=== PATIENT | female | born 1940 | race Caucasian/White ===

== ENCOUNTER 2019-11-16 11:06 | Inpatient (IN) ==
[2019-11-16 11:42] LABS: INR 1.4; Partial Thromboplastin Time 25.8 SECS (20.8-36.0)
[2019-11-16 11:53] LABS: Albumin 3.2 G/DL (3.4-5.0); Bilirubin,Total 0.7 MG/DL (0.2-1.0); Calcium 8.3 MG/DL (8.5-10.1); Osmolality,Calculated 266.5 MOS/KG (273-304); Total Protein 6.6 G/DL (6.4-8.3)
[2019-11-16] MEDS ORDERED: cefTRIAXone 1,000 MG VIAL ONE (12:37)
[2019-11-16] MEDS ORDERED: SODIUM CHLORIDE 0.9% 100 ML IV ONE (12:38)
[2019-11-16] MEDS ORDERED: CLINDAMYCIN INJ 900 MG in PREMIX 1 EACH IV STA (12:50)
[2019-11-16 13:46] LABS: Basophils % 0.2 % (0.0-0.8); Eosinophils # 0.1 10*3/uL (0.0-0.87); Eosinophils % 0.9 % (0.00-10.9); Hematocrit 34.3 VOL% (35.7-47.0); Hemoglobin 9.8 GM/DL (12.0-16.0); Immature Granulocytes % 0.5 %; Immature Granulocytes Absolute 0.05 #; Lymphocytes # 5.5 10*3/uL (1.4-4.0); Lymphocytes % 51.7 % (21.3-54.2); Mean Corpuscular HGB Conc 28.6 GM/DL (32-36); Mean Corpuscular Volume 80.9 FL (87-102); Mean Platelet Volume 11.4 FL (9.6-12.0); Monocytes % 4.2 % (1.7-12.7); NRBC # 0.02 10*3/uL; Neutrophils % 42.5 % (38.7-73.9); Platelet Count 123 T/CUMM (130-400); Red Blood Count 4.24 MC/CUMM (3.8-5.5); Red Cell Distribution Width 17.5 % (9.3-17.3); White Blood Count 10.6 T/CUMM (4-12)
[2019-11-16 13:57] LABS: Troponin I 0.017 NG/ML (0.00-0.045)
[2019-11-16] MEDS ORDERED: ONDANSETRON 4 MG/2 ML VIAL IV PRN (14:49)
[2019-11-16] MEDS ORDERED: BISACODYL 5 MG TABLET PO PRN (14:49)
[2019-11-16 14:54] LABS: Polychromasia Few
[2019-11-16 14:55] LABS: Hypochromasia Slight; Microcytosis Slight; Platelet Estimate Adequate
[2019-11-16] MEDS ORDERED: DIPH/TET/ACEL PERT BOOSTER VACCINE 0.5 ML VIAL IM ONE (15:05)
[2019-11-16] MEDS: FUROSEMIDE 40 MG/4 ML VIAL IV SCH (16:53)
[2019-11-16 20:11] LABS: Apearance,Urine CLEAR (Clear); Bacteria,Urine Occasional /HPF (Few); Bilirubin,Urine Negative (Negative); Blood, Urine Negative (Negative); Glucose,Urine (UA) Negative (Negative); Hyaline Casts,Urine 8 /LPF (0-3); Ketones,Urine 5 mg/dL (Negative); Mucus,Urine Occasional /LPF (Occasional); Nitrite,Urine Negative (Negative); Protein,Urine Negative; RBC,Urine 1 /HPF (0-4); Squamous Epithelial Cell,Urine Occasional /HPF (0-10); Urine Color Amber (Yellow); Urine Specific Gravity 1.014 (1.001-1.035); Urine Urobilinogen < 2.0 EU/DL (0.2-1.0); WBC,Urine 1 /HPF (0-6)
[2019-11-16] MEDS: METOPROLOL TARTRATE 25 MG TABLET PO SCH (20:57)
[2019-11-16] MEDS: oxyCODONE/ACETAMINOPHEN 5-325 MG TABLET PO PRN (20:57)
[2019-11-16] MEDS: DOCUSATE SODIUM 100 MG CAPSULE PO SCH (20:57)
[2019-11-16] MEDS ORDERED: carvediloL 3.125 MG TABLET PO SCH (21:00)
[2019-11-16] MEDS ORDERED: METOPROLOL TARTRATE 25 MG TABLET PO SCH (21:00)
[2019-11-17 05:57] LABS: % Iron Saturation 7.2 % (18-50); Calcium 8.2 MG/DL (8.5-10.1); Ferritin 35.8 ng/ml (8-252); Osmolality,Calculated 270.2 MOS/KG (273-304)
[2019-11-17 06:06] LABS: Basophils % 0.3 % (0.0-0.8); Eosinophils # 0.2 10*3/uL (0.0-0.87); Eosinophils % 1.3 % (0.00-10.9); Hematocrit 30.8 VOL% (35.7-47.0); Immature Granulocytes % 0.2 %; Immature Granulocytes Absolute 0.02 #; Lymphocytes # 8.4 10*3/uL (1.4-4.0); Lymphocytes % 72.5 % (21.3-54.2); Mean Corpuscular HGB Conc 29.2 GM/DL (32-36); Mean Corpuscular Volume 79.4 FL (87-102); Mean Platelet Volume 11.9 FL (9.6-12.0); Monocytes % 3.9 % (1.7-12.7); Neutrophils % 21.8 % (38.7-73.9); Platelet Count 121 T/CUMM (130-400); Red Blood Count 3.88 MC/CUMM (3.8-5.5); Red Cell Distribution Width 17.6 % (9.3-17.3); White Blood Count 11.5 T/CUMM (4-12)
[2019-11-17 06:10] LABS: Eosinophils 3 % (0-10); Hypochromasia 1+; Lymphocytes 68 % (20-55); Nucleated Red Blood Cells 1 (0-5); Platelet Estimate Normal; Segmented Neutrophils 29 % (50-85); Total Cells Counted 100
[2019-11-17 06:11] LABS: Atypical Lymphocytes Few; Microcytosis Slight
[2019-11-17] MEDS ORDERED: APIXABAN 5 MG TABLET PO SCH (09:30)
[2019-11-17] MEDS ORDERED: SOTALOL 80 MG TABLET PO SCH (09:30)
[2019-11-17] MEDS ORDERED: METOPROLOL TARTRATE 5 MG/5 ML VIAL IV ONE ×2 (10:00→10:49)
[2019-11-17] MEDS: FUROSEMIDE 40 MG/4 ML VIAL IV SCH ×2 (10:42→15:03)
[2019-11-17] MEDS: ACETAMINOPHEN 325 MG TABLET PO PRN (10:43)
[2019-11-17] MEDS: DOCUSATE SODIUM 100 MG CAPSULE PO SCH ×2 (11:04→21:02)
[2019-11-17] MEDS: FERROUS SULFATE 325 MG TABLET PO SCH (11:04)
[2019-11-17] MEDS: CHOLECALCIFEROL 1,000 UNIT TABLET PO SCH (11:05)
[2019-11-17] MEDS: ASCORBIC ACID 500 MG TABLET PO SCH ×2 (11:05→21:01)
[2019-11-17] MEDS: ASPIRIN EC 81 MG TABLET PO SCH (11:05)
[2019-11-17] MEDS: PANTOPRAZOLE 40 MG TABLET PO SCH (11:05)
[2019-11-17] MEDS: METOPROLOL TARTRATE 25 MG TABLET PO SCH ×2 (11:14→21:02)
[2019-11-17] MEDS ORDERED: LEVOFLOXACIN INJ 500 MG in PREMIX 1 EACH IV ONE (13:00)
[2019-11-17] MEDS ORDERED: ENOXAPARIN 80 MG/0.8 ML SYRINGE SUBCUT ONE (14:50)
[2019-11-17] MEDS ORDERED: dilTIAZem Drip 125 MG/125 ML PREMIX IV SCH (16:00)
[2019-11-17 16:05] LABS: Lymphocytes,Pleural Fluid 100 %
[2019-11-17 16:09] LABS: RBC,Pleural Fluid 90745 T/CUMM
[2019-11-17] MEDS: SOTALOL 80 MG TABLET PO SCH ×2 (16:38→21:02)
[2019-11-17] MEDS: oxyCODONE/ACETAMINOPHEN 5-325 MG TABLET PO PRN (18:07)
[2019-11-17] MEDS: APIXABAN 5 MG TABLET PO SCH (21:02)
[2019-11-18] MEDS: ACETAMINOPHEN 325 MG TABLET PO PRN (05:40)
[2019-11-18] MEDS: DORNASE ALFA 2.5 MG/2.5 ML VIAL RESP TX SCH ×2 (07:05→20:52)
[2019-11-18] MEDS: ALBUTEROL 1.25 MG/3 ML NEB RESP TX SCH ×3 (07:05→20:52)
[2019-11-18 07:14] LABS: Basophils % 0.2 % (0.0-0.8); Eosinophils # 0.1 10*3/uL (0.0-0.87); Eosinophils % 0.9 % (0.00-10.9); Hematocrit 32.1 VOL% (35.7-47.0); Immature Granulocytes % 0.2 %; Immature Granulocytes Absolute 0.02 #; Lymphocytes # 7.1 10*3/uL (1.4-4.0); Lymphocytes % 69.9 % (21.3-54.2); Mean Corpuscular HGB Conc 29.3 GM/DL (32-36); Mean Corpuscular Volume 79.7 FL (87-102); Mean Platelet Volume 11.6 FL (9.6-12.0); Monocytes % 5.1 % (1.7-12.7); Neutrophils % 23.7 % (38.7-73.9); Platelet Count 111 T/CUMM (130-400); Red Blood Count 4.03 MC/CUMM (3.8-5.5); Red Cell Distribution Width 17.5 % (9.3-17.3); White Blood Count 10.2 T/CUMM (4-12)
[2019-11-18 07:15] LABS: Hemoglobin 9.4 GM/DL (12.0-16.0)
[2019-11-18 07:16] LABS: Calcium 8.2 MG/DL (8.5-10.1); Osmolality,Calculated 274.1 MOS/KG (273-304)
[2019-11-18] MEDS: oxyCODONE/ACETAMINOPHEN 5-325 MG TABLET PO PRN ×2 (07:29→13:34)
[2019-11-18 07:32] LABS: Eosinophils 1 % (0-10); Lymphocytes 63 % (20-55); Platelet Estimate Decreased; Segmented Neutrophils 32 % (50-85); Total Cells Counted 100
[2019-11-18 07:33] LABS: Atypical Lymphocytes Few; Hypochromasia 1+; Microcytosis Slight; Ovalocytes Slight
[2019-11-18] MEDS ORDERED: FUROSEMIDE 20 MG/2 ML VIAL IV SCH (08:00)
[2019-11-18] MEDS: ASPIRIN EC 81 MG TABLET PO SCH (08:58)
[2019-11-18] MEDS: DOCUSATE SODIUM 100 MG CAPSULE PO SCH ×2 (08:58→21:22)
[2019-11-18] MEDS: CHOLECALCIFEROL 1,000 UNIT TABLET PO SCH (08:58)
[2019-11-18] MEDS: METOPROLOL TARTRATE 25 MG TABLET PO SCH ×2 (08:58→21:23)
[2019-11-18] MEDS: FERROUS SULFATE 325 MG TABLET PO SCH (08:58)
[2019-11-18] MEDS: SOTALOL 80 MG TABLET PO SCH ×2 (08:58→21:22)
[2019-11-18] MEDS: PANTOPRAZOLE 40 MG TABLET PO SCH (08:58)
[2019-11-18] MEDS: APIXABAN 5 MG TABLET PO SCH ×2 (08:58→21:22)
[2019-11-18] MEDS: ASCORBIC ACID 500 MG TABLET PO SCH ×2 (08:58→21:22)
[2019-11-18] MEDS: BACITRACIN OINT 0.9 GM PACK TOP SCH ×2 (12:34→21:25)
[2019-11-18] MEDS: LEVOFLOXACIN INJ 250 MG in PREMIX 1 EACH IV SCH (12:34)
[2019-11-18] MEDS ORDERED: SODIUM CHLORIDE 0.9% 250 ML IV ONE (17:44)
[2019-11-19] MEDS: ALBUTEROL 1.25 MG/3 ML NEB RESP TX SCH ×4 (00:40→20:24)
[2019-11-19 05:08] LABS: Calcium 8.7 MG/DL (8.5-10.1); Osmolality,Calculated 278.7 MOS/KG (273-304)
[2019-11-19 05:16] LABS: Basophils % 0.3 % (0.0-0.8); Eosinophils # 0.1 10*3/uL (0.0-0.87); Eosinophils % 0.7 % (0.00-10.9); Hemoglobin 9.7 GM/DL (12.0-16.0); Immature Granulocytes % 0.3 %; Immature Granulocytes Absolute 0.03 #; Lymphocytes # 7.8 10*3/uL (1.4-4.0); Mean Corpuscular HGB Conc 29.4 GM/DL (32-36); Mean Corpuscular Volume 79.1 FL (87-102); Mean Platelet Volume 11.6 FL (9.6-12.0); Neutrophils % 23.7 % (38.7-73.9); Platelet Count 122 T/CUMM (130-400); Red Blood Count 4.17 MC/CUMM (3.8-5.5); Red Cell Distribution Width 17.6 % (9.3-17.3); White Blood Count 11.2 T/CUMM (4-12)
[2019-11-19 05:29] LABS: Band Neutrophils 1 % (0-10); Eosinophils 1 % (0-10); Lymphocytes 70 % (20-55); Platelet Estimate Decreased; Segmented Neutrophils 26 % (50-85); Total Cells Counted 100
[2019-11-19 05:30] LABS: Anisocytosis 1+; Microcytosis 1+; Reactive Lymphocytes 1+
[2019-11-19] MEDS: DORNASE ALFA 2.5 MG/2.5 ML VIAL RESP TX SCH ×2 (08:03→20:24)
[2019-11-19] MEDS: METOPROLOL TARTRATE 25 MG TABLET PO SCH ×2 (08:50→21:13)
[2019-11-19] MEDS: DOCUSATE SODIUM 100 MG CAPSULE PO SCH ×2 (08:50→21:13)
[2019-11-19] MEDS: CHOLECALCIFEROL 1,000 UNIT TABLET PO SCH (08:51)
[2019-11-19] MEDS: ACETAMINOPHEN 325 MG TABLET PO PRN (08:51)
[2019-11-19] MEDS: APIXABAN 5 MG TABLET PO SCH ×2 (08:51→21:13)
[2019-11-19] MEDS: FERROUS SULFATE 325 MG TABLET PO SCH (08:52)
[2019-11-19] MEDS: ASPIRIN EC 81 MG TABLET PO SCH (08:52)
[2019-11-19] MEDS: SOTALOL 80 MG TABLET PO SCH ×2 (08:52→21:13)
[2019-11-19] MEDS: PANTOPRAZOLE 40 MG TABLET PO SCH (08:52)
[2019-11-19] MEDS: ASCORBIC ACID 500 MG TABLET PO SCH ×2 (08:52→21:13)
[2019-11-19] MEDS: BACITRACIN OINT 0.9 GM PACK TOP SCH ×2 (08:53→21:13)
[2019-11-19] MEDS: LACTULOSE 20 GM/30 ML UDCUP PO SCH (09:50)
[2019-11-19] MEDS ORDERED: ERGOCALCIFEROL 50,000 UNIT CAPSULE PO ONE (13:04)
[2019-11-19] MEDS: LEVOFLOXACIN INJ 250 MG in PREMIX 1 EACH IV SCH (13:14)
[2019-11-19] MEDS: oxyCODONE/ACETAMINOPHEN 5-325 MG TABLET PO PRN (14:27)
[2019-11-19] MEDS: FUROSEMIDE 20 MG TABLET PO SCH (15:55)
[2019-11-20] MEDS: ALBUTEROL 1.25 MG/3 ML NEB RESP TX SCH ×4 (01:13→19:56)
[2019-11-20 05:38] LABS: Albumin 3.2 G/DL (3.4-5.0); Bilirubin,Total 1.1 MG/DL (0.2-1.0); Calcium 8.6 MG/DL (8.5-10.1); Osmolality,Calculated 278.7 MOS/KG (273-304); Total Protein 6.6 G/DL (6.4-8.3)
[2019-11-20 06:01] LABS: Basophils % 0.3 % (0.0-0.8); Eosinophils # 0.1 10*3/uL (0.0-0.87); Eosinophils % 0.6 % (0.00-10.9); Hematocrit 32.6 VOL% (35.7-47.0); Hemoglobin 9.6 GM/DL (12.0-16.0); Immature Granulocytes % 0.2 %; Immature Granulocytes Absolute 0.02 #; Lymphocytes # 6.6 10*3/uL (1.4-4.0); Lymphocytes % 62.1 % (21.3-54.2); Mean Corpuscular HGB Conc 29.4 GM/DL (32-36); Mean Corpuscular Volume 79.3 FL (87-102); Mean Platelet Volume 11.9 FL (9.6-12.0); Monocytes % 5.8 % (1.7-12.7); Platelet Count 133 T/CUMM (130-400); Red Blood Count 4.11 MC/CUMM (3.8-5.5); White Blood Count 10.6 T/CUMM (4-12)
[2019-11-20 06:18] LABS: Atypical Lymphocytes Few; Eosinophils 1 % (0-10); Hypochromasia 1+; Lymphocytes 60 % (20-55); Microcytosis Slight; Platelet Estimate Normal; Segmented Neutrophils 34 % (50-85); Total Cells Counted 100
[2019-11-20] MEDS: DORNASE ALFA 2.5 MG/2.5 ML VIAL RESP TX SCH ×2 (08:35→19:56)
[2019-11-20] MEDS: SOTALOL 80 MG TABLET PO SCH ×2 (09:05→21:41)
[2019-11-20] MEDS: PANTOPRAZOLE 40 MG TABLET PO SCH (09:06)
[2019-11-20] MEDS: FUROSEMIDE 20 MG TABLET PO SCH ×2 (09:06→16:15)
[2019-11-20] MEDS: ASCORBIC ACID 500 MG TABLET PO SCH ×2 (09:06→21:41)
[2019-11-20] MEDS: ASPIRIN EC 81 MG TABLET PO SCH (09:06)
[2019-11-20] MEDS: CHOLECALCIFEROL 1,000 UNIT TABLET PO SCH (09:06)
[2019-11-20] MEDS: BACITRACIN OINT 0.9 GM PACK TOP SCH ×2 (09:06→21:41)
[2019-11-20] MEDS: METOPROLOL TARTRATE 25 MG TABLET PO SCH ×2 (09:07→21:41)
[2019-11-20] MEDS: LACTULOSE 20 GM/30 ML UDCUP PO SCH (09:07)
[2019-11-20] MEDS: ACETAMINOPHEN 325 MG TABLET PO PRN (09:07)
[2019-11-20] MEDS: FERROUS SULFATE 325 MG TABLET PO SCH (09:07)
[2019-11-20] MEDS: APIXABAN 5 MG TABLET PO SCH ×2 (09:07→21:41)
[2019-11-20] MEDS: DOCUSATE SODIUM 100 MG CAPSULE PO SCH ×2 (09:08→21:41)
[2019-11-20] MEDS: oxyCODONE/ACETAMINOPHEN 5-325 MG TABLET PO PRN ×2 (10:36→16:10)
[2019-11-20] MEDS: LEVOFLOXACIN INJ 250 MG in PREMIX 1 EACH IV SCH (13:24)
[2019-11-21] MEDS: ALBUTEROL 1.25 MG/3 ML NEB RESP TX SCH ×2 (01:15→06:58)
[2019-11-21 06:04] LABS: Basophils % 0.2 % (0.0-0.8); Eosinophils # 0.1 10*3/uL (0.0-0.87); Eosinophils % 0.6 % (0.00-10.9); Hemoglobin 9.7 GM/DL (12.0-16.0); Immature Granulocytes % 0.3 %; Immature Granulocytes Absolute 0.03 #; Lymphocytes # 6.4 10*3/uL (1.4-4.0); Lymphocytes % 59.6 % (21.3-54.2); Mean Corpuscular HGB Conc 29.2 GM/DL (32-36); Mean Corpuscular Volume 79.4 FL (87-102); Mean Platelet Volume 11.7 FL (9.6-12.0); Monocytes % 5.9 % (1.7-12.7); Neutrophils % 33.4 % (38.7-73.9); Platelet Count 119 T/CUMM (130-400); Red Blood Count 4.18 MC/CUMM (3.8-5.5); Red Cell Distribution Width 18.6 % (9.3-17.3); White Blood Count 10.7 T/CUMM (4-12)
[2019-11-21 06:14] LABS: Hematocrit 33.2 VOL% (35.7-47.0)
[2019-11-21 06:34] LABS: Atypical Lymphocytes Few; Lymphocytes 61 % (20-55); Reactive Lymphocytes 1+; Segmented Neutrophils 31 % (50-85); Total Cells Counted 100
[2019-11-21 06:36] LABS: Hypochromasia 1+; Microcytosis 1+; Platelet Estimate Adequate; Polychromasia Few
[2019-11-21] MEDS: DORNASE ALFA 2.5 MG/2.5 ML VIAL RESP TX SCH (07:03)
[2019-11-21 08:03] VITALS: BP 117/75
[2019-11-21] MEDS: BACITRACIN OINT 0.9 GM PACK TOP SCH (08:58)
[2019-11-21 09:21] LABS: Osmolality,Calculated 275.1 MOS/KG (273-304)
[2019-11-21] MEDS ORDERED: MIDAZOLAM 10 MG/2 ML VIAL ONE (11:53)
[2019-11-21] MEDS ORDERED: MEPERIDINE 25 MG/1 ML VIAL ONE (11:53)
[2019-11-21] MEDS: FUROSEMIDE 20 MG TABLET PO SCH ×2 (13:43→15:30)
[2019-11-21] MEDS: APIXABAN 5 MG TABLET PO SCH (13:56)
[2019-11-21] MEDS: CHOLECALCIFEROL 1,000 UNIT TABLET PO SCH (13:56)
[2019-11-21] MEDS: METOPROLOL TARTRATE 25 MG TABLET PO SCH (13:56)
[2019-11-21] MEDS: SOTALOL 80 MG TABLET PO SCH (13:56)
[2019-11-21] MEDS: PANTOPRAZOLE 40 MG TABLET PO SCH (13:59)
[2019-11-21] MEDS: FERROUS SULFATE 325 MG TABLET PO SCH (13:59)
[2019-11-21] MEDS: ASCORBIC ACID 500 MG TABLET PO SCH (13:59)
[2019-11-21] MEDS: DOCUSATE SODIUM 100 MG CAPSULE PO SCH (13:59)
[2019-11-21] MEDS: ASPIRIN EC 81 MG TABLET PO SCH (13:59)
[2019-11-21] MEDS: LEVOFLOXACIN INJ 250 MG in PREMIX 1 EACH IV SCH (14:00)
[2019-11-21] MEDS: LACTULOSE 20 GM/30 ML UDCUP PO SCH (14:00)
== END 2019-11-21 15:30 | disposition home health service (06) | DRG 291 ==
LOC: EDUNIT# → N.ED 11:06 → N.EDINP 14:49 → N.4E 15:59 → N.TELEN 11-17 11:03
PROVIDERS: ADMIT Hospitalist; ATTEND Hospitalist
PROC: IRTHORA (2019-11-17 14:20)

== ENCOUNTER 2020-06-24 15:10 | Inpatient (IN) ==
[2020-06-24 16:42] LABS: Basophils % 0.2 % (0.0-0.8); Eosinophils % 0.1 % (0.00-10.9); Hematocrit 35.8 VOL% (35.7-47.0); Hemoglobin 10.7 GM/DL (12.0-16.0); Immature Granulocytes % 0.7 %; Immature Granulocytes Absolute 0.11 #; Lymphocytes # 7.7 10*3/uL (1.4-4.0); Lymphocytes % 52.1 % (21.3-54.2); Mean Corpuscular HGB Conc 29.9 GM/DL (32-36); Mean Corpuscular Volume 80.6 FL (87-102); Mean Platelet Volume 11.2 FL (9.6-12.0); Monocytes % 6.1 % (1.7-12.7); Neutrophils % 40.8 % (38.7-73.9); Platelet Count 126 T/CUMM (130-400); Red Blood Count 4.44 MC/CUMM (3.8-5.5); Red Cell Distribution Width 16.6 % (9.3-17.3); White Blood Count 14.8 T/CUMM (4-12)
[2020-06-24 16:56] LABS: Apearance,Urine CLOUDY (Clear); Bacteria,Urine Occasional /HPF (Few); Bilirubin,Urine Negative (Negative); Blood, Urine Small mg/dL (Negative); Glucose,Urine (UA) Negative (Negative); Ketones,Urine Negative (Negative); Nitrite,Urine Negative (Negative); Protein,Urine Negative; Squamous Epithelial Cell,Urine Occasional /HPF (0-10); Urine Color Amber (Yellow); Urine Specific Gravity 1.008 (1.001-1.035); Urine Urobilinogen < 2.0 EU/DL (0.2-1.0); WBC,Urine 91 /HPF (0-6)
[2020-06-24 16:59] LABS: INR 2.2; PT Patient Result 22.4 SECS (9.8-11.9)
[2020-06-24 17:02] LABS: Barbiturates Screen,Urine Negative (Negative); Benzodiazepines Screen,Urine Negative (Negative); Cannabinoid Screen,Urine Negative (Negative); Opiate Screen,Urine Negative (Negative); Phencyclidine Screen,Urine Negative (Negative)
[2020-06-24] MEDS ORDERED: LEVOFLOXACIN INJ 750 MG in PREMIX 1 EACH IV STA (17:02)
[2020-06-24 17:07] LABS: Bilirubin,Total 1.7 MG/DL (0.2-1.0); Calcium 8.4 MG/DL (8.5-10.1); Osmolality,Calculated 270.1 MOS/KG (273-304); Total Protein 6.1 G/DL (6.4-8.3)
[2020-06-24] MEDS ORDERED: ACETAMINOPHEN 500 MG TABLET PO PRN (17:26)
[2020-06-24] MEDS ORDERED: ONDANSETRON 4 MG/2 ML VIAL IV PRN (17:26)
[2020-06-24 18:06] LABS: Atypical Lymphocytes Few; Eosinophils 1 % (0-10); Lymphocytes 51 % (20-55); Platelet Estimate Adequate; Segmented Neutrophils 48 % (50-85); Total Cells Counted 100
[2020-06-24] MEDS: AMITRIPTYLINE 75 MG TABLET PO SCH (21:13)
[2020-06-24] MEDS: SOTALOL 80 MG TABLET PO SCH (21:13)
[2020-06-24] MEDS: MEMANTINE 5 MG TABLET PO SCH (21:13)
[2020-06-24] MEDS ORDERED: MAGNESIUM SULF RIDER 2 GM in PREMIX 1 EACH IV ONE (21:25)
[2020-06-24] MEDS: SODIUM CHLORIDE 0.9% 1,000 ML IV SCH (22:10)
[2020-06-25 05:59] LABS: Basophils # 0.1 10*3/uL (0.0-0.2); Basophils % 0.5 % (0.0-0.8); Eosinophils % 0.2 % (0.00-10.9); Hematocrit 32.5 VOL% (35.7-47.0); Hemoglobin 9.8 GM/DL (12.0-16.0); Immature Granulocytes % 0.5 %; Immature Granulocytes Absolute 0.05 #; Mean Corpuscular HGB Conc 30.2 GM/DL (32-36); Mean Platelet Volume 11.2 FL (9.6-12.0); Monocytes % 5.4 % (1.7-12.7); Neutrophils % 38.4 % (38.7-73.9); Platelet Count 120 T/CUMM (130-400); Red Blood Count 4.01 MC/CUMM (3.8-5.5); Red Cell Distribution Width 16.6 % (9.3-17.3); White Blood Count 10.9 T/CUMM (4-12)
[2020-06-25 06:31] LABS: Blood Urea Nitrogen 21 MG/DL (7-18); Calcium 6.6 MG/DL (8.5-10.1); Estimated Glom Filtration Rate 43 ML/MIN; Glucose 70 MG/DL (74-106); Osmolality,Calculated 277.5 MOS/KG (273-304)
[2020-06-25 06:33] LABS: Troponin I 0.189 NG/ML (0.00-0.045)
[2020-06-25] MEDS ORDERED: POTASSIUM CHLORIDE 20 MEQ TABLET PO ONE (06:56)
[2020-06-25 07:35] LABS: Atypical Lymphocytes Few; Eosinophils 1 % (0-10); Hypochromasia 1+; Lymphocytes 55 % (20-55); Segmented Neutrophils 39 % (50-85); Total Cells Counted 100
[2020-06-25 07:40] LABS: Microcytosis 1+; Platelet Estimate Adequate
[2020-06-25] MEDS ORDERED: ASPIRIN 325 MG TABLET PO SCH (09:00)
[2020-06-25] MEDS ORDERED: ASPIRIN EC 81 MG TABLET PO SCH ×2 (09:00)
[2020-06-25] MEDS ORDERED: CIPROFLOXACIN INJ 400 MG in PREMIX 1 EACH IV SCH (09:00)
[2020-06-25] MEDS ORDERED: LACTULOSE 20 GM/30 ML UDCUP PO PRN (09:00)
[2020-06-25] MEDS: MEMANTINE 5 MG TABLET PO SCH ×2 (09:49→21:42)
[2020-06-25] MEDS: FERROUS SULFATE 325 MG TABLET PO SCH ×2 (09:49→21:42)
[2020-06-25] MEDS: POTASSIUM CHLORIDE 20 MEQ TABLET PO PRN ×2 (09:49→22:36)
[2020-06-25] MEDS: CIPROFLOXACIN INJ 200 MG in PREMIX 1 EACH IV SCH ×4 (09:49→22:39)
[2020-06-25] MEDS: SOTALOL 80 MG TABLET PO SCH ×2 (09:49→21:42)
[2020-06-25] MEDS: SODIUM CHLORIDE 0.9% 1,000 ML IV SCH (13:29)
[2020-06-25] MEDS: AMITRIPTYLINE 75 MG TABLET PO SCH (21:42)
[2020-06-25] MEDS ORDERED: MAGNESIUM SULF RIDER 2 GM in PREMIX 1 EACH IV ONE (21:51)
[2020-06-26] MEDS: POTASSIUM CHLORIDE 20 MEQ TABLET PO PRN ×2 (03:54→05:50)
[2020-06-26 05:20] LABS: Basophils % 0.3 % (0.0-0.8); Eosinophils % 0.1 % (0.00-10.9); Hematocrit 35.6 VOL% (35.7-47.0); Hemoglobin 10.6 GM/DL (12.0-16.0); Immature Granulocytes % 0.6 %; Immature Granulocytes Absolute 0.08 #; Lymphocytes # 6.4 10*3/uL (1.4-4.0); Lymphocytes % 49.6 % (21.3-54.2); Mean Corpuscular HGB Conc 29.8 GM/DL (32-36); Mean Corpuscular Volume 81.1 FL (87-102); Mean Platelet Volume 11.7 FL (9.6-12.0); Monocytes % 6.6 % (1.7-12.7); Neutrophils % 42.8 % (38.7-73.9); Platelet Count 131 T/CUMM (130-400); Red Blood Count 4.39 MC/CUMM (3.8-5.5); White Blood Count 12.8 T/CUMM (4-12)
[2020-06-26 05:31] LABS: Calcium 8.3 MG/DL (8.5-10.1); Osmolality,Calculated 274.2 MOS/KG (273-304)
[2020-06-26] MEDS: SODIUM CHLORIDE 0.9% 1,000 ML IV SCH ×2 (05:50→19:19)
[2020-06-26 06:12] LABS: Eosinophils 1 % (0-10); Lymphocytes 46 % (20-55); Segmented Neutrophils 44 % (50-85); Total Cells Counted 100
[2020-06-26 06:13] LABS: Anisocytosis 1+; Atypical Lymphocytes Few; Macrocytosis 1+; Platelet Estimate Adequate; Smudge Cells Few
[2020-06-26] MEDS ORDERED: ASPIRIN EC 81 MG TABLET PO SCH (09:00)
[2020-06-26] MEDS: FERROUS SULFATE 325 MG TABLET PO SCH ×2 (11:32→21:19)
[2020-06-26] MEDS: MEMANTINE 5 MG TABLET PO SCH ×2 (11:32→21:19)
[2020-06-26] MEDS: SOTALOL 80 MG TABLET PO SCH ×2 (11:32→21:19)
[2020-06-26] MEDS: traMADol 50 MG TABLET PO PRN ×2 (11:33→21:19)
[2020-06-26] MEDS: CIPROFLOXACIN INJ 200 MG in PREMIX 1 EACH IV SCH ×2 (12:06→21:20)
[2020-06-26] MEDS: AMITRIPTYLINE 75 MG TABLET PO SCH (21:19)
[2020-06-27] MEDS: SODIUM CHLORIDE 0.9% 1,000 ML IV SCH ×2 (04:34→22:46)
[2020-06-27 06:40] LABS: Basophils % 0.1 % (0.0-0.8); Eosinophils % 0.1 % (0.00-10.9); Hematocrit 34.1 VOL% (35.7-47.0); Hemoglobin 10.1 GM/DL (12.0-16.0); Immature Granulocytes % 0.7 %; Lymphocytes # 6.5 10*3/uL (1.4-4.0); Lymphocytes % 46.3 % (21.3-54.2); Mean Corpuscular HGB Conc 29.6 GM/DL (32-36); Mean Corpuscular Volume 83.2 FL (87-102); Mean Platelet Volume 11.1 FL (9.6-12.0); Monocytes % 7.1 % (1.7-12.7); Neutrophils % 45.7 % (38.7-73.9); Platelet Count 138 T/CUMM (130-400); Red Cell Distribution Width 17.3 % (9.3-17.3); White Blood Count 14.1 T/CUMM (4-12)
[2020-06-27 07:05] LABS: Calcium 8.4 MG/DL (8.5-10.1); Osmolality,Calculated 279.8 MOS/KG (273-304)
[2020-06-27 08:56] LABS: Anisocytosis 2+; Burr Cells Few; Lymphocytes 47 % (20-55); Platelet Estimate Adequate; Poikilocytosis Slight; Segmented Neutrophils 48 % (50-85); Smudge Cells Few; Total Cells Counted 100
[2020-06-27 08:57] LABS: Polychromasia Slight
[2020-06-27] MEDS: SOTALOL 80 MG TABLET PO SCH ×2 (10:04→21:06)
[2020-06-27] MEDS: FERROUS SULFATE 325 MG TABLET PO SCH ×2 (10:04→21:07)
[2020-06-27] MEDS: traMADol 50 MG TABLET PO PRN ×2 (10:05→21:06)
[2020-06-27] MEDS: MEMANTINE 5 MG TABLET PO SCH ×2 (10:05→21:06)
[2020-06-27] MEDS: CIPROFLOXACIN INJ 200 MG in PREMIX 1 EACH IV SCH ×2 (10:05→22:45)
[2020-06-27] MEDS: AMITRIPTYLINE 75 MG TABLET PO SCH (21:06)
[2020-06-28] MEDS: SODIUM CHLORIDE 0.9% 1,000 ML IV SCH ×2 (02:15→16:15)
[2020-06-28 06:32] LABS: Calcium 8.7 MG/DL (8.5-10.1); Osmolality,Calculated 284.4 MOS/KG (273-304)
[2020-06-28 07:11] LABS: Basophils % 0.2 % (0.0-0.8); Eosinophils % 0.2 % (0.00-10.9); Hematocrit 35.2 VOL% (35.7-47.0); Immature Granulocytes Absolute 0.14 #; Lymphocytes # 6.4 10*3/uL (1.4-4.0); Lymphocytes % 44.4 % (21.3-54.2); Mean Corpuscular Volume 84.2 FL (87-102); Mean Platelet Volume 11.6 FL (9.6-12.0); Monocytes % 7.2 % (1.7-12.7); NRBC # 0.05 10*3/uL; Platelet Count 125 T/CUMM (130-400); Red Blood Count 4.18 MC/CUMM (3.8-5.5); Red Cell Distribution Width 18.5 % (9.3-17.3); White Blood Count 14.5 T/CUMM (4-12)
[2020-06-28 07:13] LABS: Hemoglobin 10.2 GM/DL (12.0-16.0)
[2020-06-28 07:24] LABS: Hypochromasia 1+; Ovalocytes Slight
[2020-06-28 07:25] LABS: Platelet Estimate Normal
[2020-06-28] MEDS: FERROUS SULFATE 325 MG TABLET PO SCH ×2 (09:52→20:42)
[2020-06-28] MEDS: MEMANTINE 5 MG TABLET PO SCH ×2 (09:52→20:42)
[2020-06-28] MEDS: SOTALOL 80 MG TABLET PO SCH ×2 (09:52→20:42)
[2020-06-28] MEDS: CIPROFLOXACIN INJ 200 MG in PREMIX 1 EACH IV SCH ×2 (09:52→21:17)
[2020-06-28] MEDS: MEGESTROL 40 MG TABLET PO SCH (16:15)
[2020-06-28] MEDS: AMITRIPTYLINE 25 MG TABLET PO SCH (20:42)
[2020-06-29 06:08] LABS: Calcium 8.7 MG/DL (8.5-10.1); Osmolality,Calculated 283.5 MOS/KG (273-304)
[2020-06-29] MEDS: SODIUM CHLORIDE 0.9% 1,000 ML IV SCH ×2 (06:23→22:29)
[2020-06-29 06:30] LABS: Basophils % 0.2 % (0.0-0.8); Eosinophils % 0.3 % (0.00-10.9); Hematocrit 36.2 VOL% (35.7-47.0); Immature Granulocytes % 1.5 %; Immature Granulocytes Absolute 0.19 #; Lymphocytes # 5.5 10*3/uL (1.4-4.0); Lymphocytes % 42.5 % (21.3-54.2); Mean Corpuscular HGB Conc 29.3 GM/DL (32-36); Mean Corpuscular Volume 84.4 FL (87-102); Mean Platelet Volume 11.4 FL (9.6-12.0); NRBC # 0.04 10*3/uL; Neutrophils % 47.5 % (38.7-73.9); Platelet Count 104 T/CUMM (130-400); Red Blood Count 4.29 MC/CUMM (3.8-5.5); Red Cell Distribution Width 19.7 % (9.3-17.3); White Blood Count 13.1 T/CUMM (4-12)
[2020-06-29 06:32] LABS: Hemoglobin 10.6 GM/DL (12.0-16.0)
[2020-06-29 06:47] LABS: Hypochromasia 1+; Lymphocytes 39 % (20-55); Platelet Estimate Decreased; Segmented Neutrophils 56 % (50-85); Total Cells Counted 100
[2020-06-29] MEDS: FERROUS SULFATE 325 MG TABLET PO SCH ×2 (08:19→21:30)
[2020-06-29] MEDS: SOTALOL 80 MG TABLET PO SCH ×2 (08:19→21:30)
[2020-06-29] MEDS: MEGESTROL 40 MG TABLET PO SCH ×2 (08:19→16:25)
[2020-06-29] MEDS: MEMANTINE 5 MG TABLET PO SCH ×2 (08:19→21:30)
[2020-06-29] MEDS: CIPROFLOXACIN INJ 200 MG in PREMIX 1 EACH IV SCH ×2 (09:44→23:24)
[2020-06-29] MEDS ORDERED: TUBERCULIN SKIN TEST 0.1 ML SYRINGE INTRADERM ONE (17:46)
[2020-06-29] MEDS: traMADol 50 MG TABLET PO PRN (19:30)
[2020-06-29] MEDS: AMITRIPTYLINE 25 MG TABLET PO SCH (21:30)
[2020-06-30 06:09] LABS: Calcium 8.4 MG/DL (8.5-10.1); Osmolality,Calculated 279.8 MOS/KG (273-304)
[2020-06-30 06:12] LABS: Basophils % 0.3 % (0.0-0.8); Eosinophils # 0.1 10*3/uL (0.0-0.87); Eosinophils % 0.5 % (0.00-10.9); Hematocrit 36.3 VOL% (35.7-47.0); Hemoglobin 10.4 GM/DL (12.0-16.0); Immature Granulocytes % 1.4 %; Immature Granulocytes Absolute 0.21 #; Lymphocytes # 7.3 10*3/uL (1.4-4.0); Lymphocytes % 48.3 % (21.3-54.2); Mean Corpuscular HGB Conc 28.7 GM/DL (32-36); Mean Platelet Volume 11.2 FL (9.6-12.0); NRBC # 0.05 10*3/uL; Neutrophils % 42.5 % (38.7-73.9); Platelet Count 83 T/CUMM (130-400); Red Blood Count 4.27 MC/CUMM (3.8-5.5); White Blood Count 15.1 T/CUMM (4-12)
[2020-06-30 06:16] LABS: Hypochromasia Slight; Lymphocytes 42 % (20-55); Nucleated Red Blood Cells 1 (0-5); Platelet Estimate Decreased; Segmented Neutrophils 49 % (50-85); Total Cells Counted 100
[2020-06-30 06:17] LABS: Atypical Lymphocytes Few; Macrocytosis Slight; Polychromasia Slight
[2020-06-30] MEDS: FERROUS SULFATE 325 MG TABLET PO SCH ×2 (09:20→20:50)
[2020-06-30] MEDS: SERTRALINE 25 MG TABLET PO SCH (09:20)
[2020-06-30] MEDS: MEMANTINE 5 MG TABLET PO SCH ×2 (09:20→20:50)
[2020-06-30] MEDS: SOTALOL 80 MG TABLET PO SCH ×2 (09:21→20:50)
[2020-06-30] MEDS: MEGESTROL 400 MG/10 ML UDCUP PO SCH ×2 (09:21→20:50)
[2020-06-30] MEDS: CIPROFLOXACIN INJ 200 MG in PREMIX 1 EACH IV SCH ×2 (09:27→21:37)
[2020-06-30] MEDS: traMADol 50 MG TABLET PO PRN ×2 (10:09→18:03)
[2020-06-30] MEDS: SODIUM CHLORIDE 0.9% 1,000 ML IV SCH (11:30)
[2020-06-30] MEDS: FAT EMULSION 20% 250 ML IV SCH (15:48)
[2020-06-30] MEDS: TRACE ELEMENTS (5) 1 ML, MULTIVITAMIN INJ 10 ML in AMINO ACIDS/DEXT/LYTES 4.25-5% 2,000 ML IV SCH (16:29)
[2020-06-30] MEDS ORDERED: DEXTROSE 10% 1,000 ML IV PRN (17:00)
[2020-06-30] MEDS: AMITRIPTYLINE 25 MG TABLET PO SCH (20:50)
[2020-07-01 00:06] LABS: ABG Base Excess -10.2 MMOL/L (-2.5-2.5); ABG HCO3 16.3 MMOL/L (20-26); ABG Oxygen Saturation 97.5 % (95-100); ABG PCO2 37.1 MM HG (35-48); ABG PH 7.253 (7.35-7.45); ABG TCO2 15.1 MMOL/L (23-27); Allen Test Positive; Pt O2 Delivery Device Ventilator
[2020-07-01 00:25] LABS: Alanine Aminotransferase 45 U/L (13-56); Albumin 2.6 G/DL (3.4-5.0); Alkaline Phosphatase 120 U/L (45-117); Aspartate Amino Transferase 65 U/L (0-37); Blood Urea Nitrogen 31 MG/DL (7-18); Estimated Glom Filtration Rate 43 ML/MIN; Glucose 123 MG/DL (74-106); Osmolality,Calculated 277.1 MOS/KG (273-304); Total Protein 6.1 G/DL (6.4-8.3)
[2020-07-01] MEDS ORDERED: NOREPINEPHRINE 8 MG in SODIUM CHLORIDE 0.9% 242 ML IV PRN (00:28)
[2020-07-01] MEDS ORDERED: SODIUM BICARBONATE 50 MEQ/50 ML VIAL IV ONE ×2 (00:29→00:30)
[2020-07-01] MEDS ORDERED: NOREPINEPHRINE 4 MG/4 ML VIAL IV ONE (00:29)
[2020-07-01 00:39] LABS: Troponin I 0.085 NG/ML (0.00-0.045)
[2020-07-01 00:42] LABS: Basophils # 0.1 10*3/uL (0.0-0.2); Basophils % 0.5 % (0.0-0.8); Eosinophils # 0.1 10*3/uL (0.0-0.87); Eosinophils % 0.4 % (0.00-10.9); Immature Granulocytes % 3.3 %; Lymphocytes % 56.7 % (21.3-54.2); Mean Corpuscular Volume 90.3 FL (87-102); Mean Platelet Volume 11.3 FL (9.6-12.0); Monocytes % 8.2 % (1.7-12.7); NRBC # 0.66 10*3/uL; Neutrophils % 30.9 % (38.7-73.9); Platelet Count 57 T/CUMM (130-400); Red Blood Count 4.43 MC/CUMM (3.8-5.5); Red Cell Distribution Width 20.7 % (9.3-17.3)
[2020-07-01 00:43] LABS: Hemoglobin 11.2 GM/DL (12.0-16.0)
[2020-07-01] MEDS: SODIUM CHLORIDE 0.9% 1,000 ML IV SCH ×2 (01:15→14:35)
[2020-07-01 04:31] LABS: Band Neutrophils 1 % (0-10); Lymphocytes 60 % (20-55); Nucleated Red Blood Cells 2 (0-5); Segmented Neutrophils 35 % (50-85); Total Cells Counted 100
[2020-07-01 04:32] LABS: Anisocytosis 1+; Ovalocytes 1+; Platelet Estimate Decreased
[2020-07-01 05:27] LABS: Osmolality,Calculated 288.3 MOS/KG (273-304)
[2020-07-01] MEDS: SOTALOL 80 MG TABLET PO SCH ×2 (08:20→21:23)
[2020-07-01] MEDS: MEGESTROL 400 MG/10 ML UDCUP PO SCH (08:20)
[2020-07-01] MEDS: SERTRALINE 25 MG TABLET PO SCH (08:21)
[2020-07-01] MEDS: FERROUS SULFATE 325 MG TABLET PO SCH (08:21)
[2020-07-01] MEDS: MEMANTINE 5 MG TABLET PO SCH (08:21)
[2020-07-01] MEDS: CIPROFLOXACIN INJ 200 MG in PREMIX 1 EACH IV SCH (10:59)
[2020-07-01] MEDS: CLINDAMYCIN INJ 600 MG in PREMIX 1 EACH IV SCH ×2 (11:22→18:44)
[2020-07-01] MEDS: HYDROCORTISONE 100 MG VIAL IV SCH ×2 (11:22→18:44)
[2020-07-01] MEDS: FAT EMULSION 20% 250 ML IV SCH (14:35)
[2020-07-01] MEDS: TRACE ELEMENTS (5) 1 ML, MULTIVITAMIN INJ 10 ML in AMINO ACIDS/DEXT/LYTES 4.25-5% 2,000 ML IV SCH (17:38)
[2020-07-01] MEDS ORDERED: LORazepam 2 MG/1 ML VIAL IV PRN (18:20)
[2020-07-01] MEDS: fentaNYL 50 MCG/HR PATCH TRANSDERM SCH ×2 (18:58→21:23)
[2020-07-01] MEDS: MORPHINE 4 MG/1 ML VIAL IV PRN (21:14)
[2020-07-02] MEDS: CLINDAMYCIN INJ 600 MG in PREMIX 1 EACH IV SCH ×2 (01:54→10:53)
[2020-07-02] MEDS: HYDROCORTISONE 100 MG VIAL IV SCH ×2 (01:54→10:50)
[2020-07-02] MEDS: SODIUM CHLORIDE 0.9% 1,000 ML IV SCH (06:47)
[2020-07-02] MEDS: SOTALOL 80 MG TABLET PO SCH (09:17)
[2020-07-02 20:43] VITALS: BP 140/70
[2020-07-03] MEDS: MORPHINE 4 MG/1 ML VIAL IV PRN (00:29)
== END 2020-07-03 06:35 | disposition expired | DRG 689 ==
LOC: EDUNIT# → EDBD → N.ED 15:10 → N.EDINP 15:10 → N.3E 18:02 → SUATTDRO 06-25 15:34 → N.4E 06-27 18:27 → N.ICU 06-30 23:42 → N.4E 07-01 20:00
PROVIDERS: ADMIT Internal Medicine; ATTEND Internal Medicine